=== PATIENT | male | born 1980 | race Caucasian/White ===

== ENCOUNTER 2022-04-19 11:46 | Emergency (ER) | payer BC ==
[2022-04-19] MEDS ORDERED: traMADol 50 MG Tab ONE (12:15)
== END 2022-04-19 12:30 | disposition home or self-care (01) ==
LOC: LB.ED 11:46
DX: S46.212A Strain of muscle, fascia and tendon of other parts of biceps, left arm, initial encounter (principal); X58.XXXA Exposure to other specified factors, initial encounter
CPT/HCPCS: 99283; A9270; 99281

== ENCOUNTER 2023-04-05 16:58 | Emergency (ER) | payer BC ==
[2023-04-05 17:21] VITALS: BP 131/95; PULSE 98
[2023-04-05] MEDS ORDERED: Ciprofloxacin 0.3% Ophth Soln 2.5 ML Bottle ONE (17:30)
== END 2023-04-05 17:44 | disposition home or self-care (01) ==
LOC: LB.ED 16:58
DX: T15.01XA Foreign body in cornea, right eye, initial encounter (principal); Z88.8 Allergy status to other drugs, medicaments and biological substances
CPT/HCPCS: 99283; A9270-GY